=== PATIENT | male | born 1945 | race Hispanic/Latino ===

== ENCOUNTER 2019-04-16 11:18 | Day surgery (SDC) | payer BC, MEDICARE ==
[~2019-04-16 11:18] MED LIST: IOPIDINE ONE; MYDRIACYL ONE; NEOFRIN ONE
[2019-04-16] MEDS ORDERED: IOPIDINE OS ONE (11:40)
[2019-04-16] MEDS ORDERED: NEOFRIN OS ONE (11:40)
[2019-04-16] MEDS ORDERED: MYDRIACYL OS ONE (11:41)
[2019-04-16 11:51] VITALS: BP 164/82
== END 2019-04-16 12:16 | disposition home or self-care (01) ==
LOC: OR 11:18
PROVIDERS: ATTEND Ophthalmology
DX: H26.492 Other secondary cataract, left eye (principal); J44.9 Chronic obstructive pulmonary disease, unspecified; K21.9 Gastro-esophageal reflux disease without esophagitis; Z79.899 Other long term (current) drug therapy; Z87.891 Personal history of nicotine dependence; Z98.41 Cataract extraction status, right eye; Z98.42 Cataract extraction status, left eye; Z98.890 Other specified postprocedural states